=== PATIENT | male | born 1975 ===

== ENCOUNTER 2016-09-15 09:35 | Emergency (ER) | payer OTHER ==
[2016-09-15 09:47] VITALS: BMI 26.2
--- NOTE | 2016-09-15 10:16 | C.PDOC ---
History Of Present Illness Pt is a 41 yr old male presents to the ER with complaints of left groin pain for the past 2 months. Patient states the pain is worsen when he stands for a long period of time. Patient states he has not seen any doctor for the pain or has tried any pain medications. Patient denies fever, chills, nausea, vomiting, abdominal pain, diarrhea, dysuria, weakness or numbness. PMD: Cannot recall name Time Seen by Provider: 09/15/16 10:08 Chief Complaint (Nursing): Groin Pain History Per: Patient, Family (Daughter) History/Exam Limitations: no limitations Onset/Duration Of Symptoms: Persistent (2 months) Current Symptoms Are (Timing): Still Present Recent travel outside of the [place]: No Past Medical History Reviewed: Historical Data, Nursing Documentation, Vital Signs Vital Signs: Last Vital Signs Temp 97.7 F 09/15/16 13:18 Pulse 62 09/15/16 13:18 Resp 18 09/15/16 13:18 BP 113/72 09/15/16 13:18 Pulse Ox 98 09/15/16 13:36 - Medical History PMH: Kidney Stones Family History: States: No Known Family Hx - Social History Hx Tobacco Use: Yes Hx Alcohol Use: Yes Hx Substance Use: No - Immunization History Hx Tetanus Toxoid Vaccination: No Hx Influenza Vaccination: No Hx Pneumococcal Vaccination: No Review Of Systems Except As Marked, All Systems Reviewed And Found Negative. Constitutional: Negative for: Fever, Chills Gastrointestinal: Negative for: Nausea, Vomiting, Abdominal Pain, Diarrhea Genitourinary: Positive for: Other ((+) Left groin pain ). Negative for: Dysuria Neurological: Negative for: Weakness, Numbness Physical Exam - Physical Exam Appears: Well, Non-toxic, No Acute Distress Skin: Warm, Dry, No Rash Head: Atraumatic, Normacephalic Eye(s): bilateral: Normal Inspection, PERRL, EOMI Ear(s): Bilateral: Normal Nose: Normal Oral Mucosa: Moist Tongue: Normal Appearing Throat: Normal Neck: Normal Chest: Symmetrical, No Tenderness Cardiovascular: Rhythm Regular, No Murmur Respiratory: Normal Breath Sounds, No Rales, No Rhonchi, No Stridor, No Wheezing Gastrointestinal/Abdominal: Normal Exam, Soft, No Tenderness, No Guarding, No Rebound Back: Normal Inspection Male Genital: Other ((+) Left Groin - Tenderness and swelling) Extremity: Normal ROM, No Swelling Neurological/Psych: Oriented x3, Normal Speech, Normal Motor ED Course And Treatment - Laboratory Results Result Diagrams: 09/15/16 10:51 09/15/16 10:51 O2 Sat by Pulse Oximetry: 98 - CT Scan/US CT - Abd & Pelvis Other Rad Studies (CT/US): Read By Radiologist, Radiology Report Reviewed CT/US Interpretation: PROCEDURE: CT Abdomen and Pelvis with oral and IV contrast. HISTORY: Left groin pain; r/o incarcerated hernia. COMPARISON: CT abdomen and pelvis without contrast performed 07/06/15. TECHNIQUE: Contiguous axial images of the abdomen and pelvis. Oral and IV contrast was administered. Coronal and Sagittal reformats generated and reviewed. Contrast dose: 100 mL Visipaque. Radiation dose: Total exam DLP = 349.21 mGy-cm. FINDINGS: LOWER THORAX: 5 mm right lower lobe calcified granuloma. No visible consolidation, pleural effusion, or pneumothorax. LIVER: Unremarkable. GALLBLADDER AND BILE DUCTS: Unremarkable. PANCREAS: Unremarkable. SPLEEN: Unremarkable. ADRENALS: Unremarkable. KIDNEYS AND URETERS: The kidneys enhance symmetrically. No hydronephrosis or obstructing renal calculus. BLADDER: The urinary bladder appears unremarkable. REPRODUCTIVE: The prostate gland measures approximately 3.7 x 4.6 cm. APPENDIX: The appendix appears within normal limits of caliber. No secondary signs of acute appendicitis. BOWEL: The stomach is nondistended. The bowel loops appear within normal limits of caliber without evidence of intestinal obstruction. Circumferential thickening of the sigmoid colon can be seen in setting of chronic diverticulosis. Clinical correlation is recommended to exclude colitis (I.e. infectious, inflammatory, ischemic). PERITONEUM: No significant free fluid. No definite free air. LYMPH NODES: No bulky lymphadenopathy identified. VASCULATURE: No aortic aneurysm. BONES: Mild degenerative changes. Mild scoliosis. Persistent well marrow heterogeneity predominantly involving the pelvis and sacrum and to a lesser extent the vertebral bodies. OTHER FINDINGS: Postsurgical changes consistent with prior right inguinal hernia repair. Small fat containing left inguinal hernia. IMPRESSION: Circumferential thickening of the sigmoid colon can be seen in setting of chronic diverticulosis. Clinical correlation is recommended to exclude colitis (I.e. infectious, inflammatory, ischemic). Postsurgical changes consistent with prior right inguinal hernia repair. Small fat containing left inguinal hernia. Persistent well marrow heterogeneity predominantly involving the pelvis and sacrum and to a lesser extent the vertebral bodies. Differential diagnosis includes marrow infiltrative processes , anemia, marrow conversion, and postradiation change among other etiologies as reported on prior study performed 07/06/15. Correlate clinically. Medical Decision Making Medical Decision Making: INITIAL IMPRESSION: r/o incarcerated hernia PLAN: * CT - Abd & Pelvis * CBC * Urinalysis NOTE: CT does not show an incarcerated hernia. Will have pt follow up as an outpatient. Disposition Counseled Patient/Family Regarding: Studies Performed, Diagnosis - Disposition Referrals: [facility] [Outside] [facility] [Outside] Disposition: HOME/ ROUTINE Disposition Time: 13:29 Condition: IMPROVED Additional Instructions: Mr. Augustin, thank you for letting us take care of you today. Return to the ER if your symptoms worsen, or if any problems. Take the medication listed below as prescribed. No heavy lifting if possible. Call the [facility] at the phone number listed below. Once you go to the [facility], you will get a referral to see a surgeon. Prescriptions: Ibuprofen [Motrin] 1 tab PO Q8 #30 tab Instructions: Inguinal Hernia (ED) Forms: Gen Discharge Inst Austrian Print Language: YI - POA Present On Arrival: None - Clinical Impression Clinical Impression: Inguinal hernia - Scribe Statement The provider has reviewed the documentation as recorded by the Parisibgreer Miller Provider Attestation: All medical record entries made by the Parisibgreer were at my direction and personally dictated by me. I have reviewed the chart and agree that the record accurately reflects my personal performance of the history, physical exam, medical decision making, and the department course for this patient. I have also personally directed, reviewed, and agree with the discharge instructions and disposition.
[2016-09-15] MEDS ORDERED: Iohexol 240 (50 ml) PO STA (10:19)
[2016-09-15 10:24] LABS: RBC URINE < 1 /hpf (0-3); URINE BACTERIA RARE (<OCC); URINE BILIRUBIN NEGATIVE (NEGATIVE); URINE BLOOD 1+ (NEGATIVE); URINE COLOR Straw (YELLOW); URINE GLUCOSE (UA) NORMAL (Normal); URINE KETONE NEGATIVE (NEGATIVE); URINE LEUKOCYTE ESTERASE NEG Leu/uL (Negative); URINE PROTEIN NEGATIVE (NEGATIVE); URINE UROBILINOGEN NORMAL mg/dL (0.2-1.0); WBC URINE < 1 /hpf (0-5)
[2016-09-15] MEDS ORDERED: Iohexol 240 (50 ml) ONE (10:28)
[2016-09-15 10:54] LABS: BASO # 0.1 K/uL (0.0-0.2); BASO % 0.7 % (0.0-2.0); EOS # 0.2 K/uL (0.0-0.7); EOS % 2.4 % (0.0-4.0); HEMATOCRIT 52.4 % (35.0-51.0); LYMPH # 3.4 K/uL (1.0-4.3); LYMPH % 35.8 % (20.0-40.0); MEAN CELL VOLUME 90.5 fL (80.0-94.0); MEAN CORPUSCULAR HEMOGLOBIN 30.7 pg (27.0-31.0); MEAN CORPUSCULAR HGB CONC 33.9 g/dL (33.0-37.0); MEAN PLATELET VOLUME 8.6 fL (7.2-11.7); MONO % 10.1 % (0.0-10.0); NRBC % 0.1 % (0.0-2.0); RED CELL DISTRIBUTION WIDTH 12.6 % (11.5-14.5); WHITE BLOOD COUNT 9.6 K/uL (4.8-10.8)
[2016-09-15 11:15] LABS: CHLORIDE 97 mmol/L (98-107); POTASSIUM 3.7 mmol/L (3.6-5.2); SODIUM 140 mmol/L (132-148)
[2016-09-15 11:18] LABS: ALB/GLOB RATIO 1.4 (1.0-2.1); ALKALINE PHOSPHATASE 96 U/L (38-126); ALT/SGPT 35 U/L (21-72); AST/SGOT 35 U/L (17-59); BILIRUBIN,TOTAL 0.7 mg/dL (0.2-1.3); BLOOD UREA NITROGEN 13 mg/dL (9-20); CALCIUM 9.1 mg/dl (8.6-10.4); CARBON DIOXIDE 27 mmol/L (22-30); GFR AFRICAN-AMERICAN > 60; GLUCOSE,RANDOM 98 mg/dL (75-110)
[2016-09-15] MEDS ORDERED: Iodixanol 320 mg/ml 150 ml Bottle IV ONE (12:10)
--- NOTE | 2016-09-15 13:18 | CT ---
PROCEDURE: CT Abdomen and Pelvis with oral and IV contrast. HISTORY: Left groin pain; r/o incarcerated hernia COMPARISON: CT abdomen and pelvis without contrast performed 07/06/15 TECHNIQUE: Contiguous axial images of the abdomen and pelvis. Oral and IV contrast was administered. Coronal and Sagittal reformats generated and reviewed. Contrast dose: 100 mL Visipaque Radiation dose: Total exam DLP = 349.21 mGy-cm. FINDINGS: LOWER THORAX: 5 mm right lower lobe calcified granuloma. No visible consolidation, pleural effusion, or pneumothorax. LIVER: Unremarkable. GALLBLADDER AND BILE DUCTS: Unremarkable. PANCREAS: Unremarkable. SPLEEN: Unremarkable. ADRENALS: Unremarkable. KIDNEYS AND URETERS: The kidneys enhance symmetrically. No hydronephrosis or obstructing renal calculus. BLADDER: The urinary bladder appears unremarkable. REPRODUCTIVE: The prostate gland measures approximately 3.7 x 4.6 cm. APPENDIX: The appendix appears within normal limits of caliber. No secondary signs of acute appendicitis. BOWEL: The stomach is nondistended. The bowel loops appear within normal limits of caliber without evidence of intestinal obstruction. Circumferential thickening of the sigmoid colon can be seen in setting of chronic diverticulosis. Clinical correlation is recommended to exclude colitis (I.e. infectious, inflammatory, ischemic). PERITONEUM: No significant free fluid. No definite free air. LYMPH NODES: No bulky lymphadenopathy identified. VASCULATURE: No aortic aneurysm. BONES: Mild degenerative changes. Mild scoliosis. Persistent well marrow heterogeneity predominantly involving the pelvis and sacrum and to a lesser extent the vertebral bodies. OTHER FINDINGS: Postsurgical changes consistent with prior right inguinal hernia repair. Small fat containing left inguinal hernia. IMPRESSION: Circumferential thickening of the sigmoid colon can be seen in setting of chronic diverticulosis. Clinical correlation is recommended to exclude colitis (I.e. infectious, inflammatory, ischemic). Postsurgical changes consistent with prior right inguinal hernia repair. Small fat containing left inguinal hernia. Persistent well marrow heterogeneity predominantly involving the pelvis and sacrum and to a lesser extent the vertebral bodies. Differential diagnosis includes marrow infiltrative processes, anemia, marrow conversion, and postradiation change among other etiologies as reported on prior study performed 07/06/15. Correlate clinically.
[2016-09-15 13:19] VITALS: BP 113/72; PULSE 62; RESP 18; TEMP 97.7
[2016-09-15 13:20] VITALS: O2SAT 98
== END 2016-09-15 14:02 | disposition home or self-care (01) ==
LOC: C.ER 09:35
DX: K40.90 Unilateral inguinal hernia, without obstruction or gangrene, not specified as recurrent (principal)
CPT/HCPCS: 74177; 80053; 81001; 83690; 85025; 85610; 85730; 99283; Q9965; Q9966

== ENCOUNTER 2016-10-17 08:52 | Day surgery (SDC) | payer OTHER, SELFPAY ==
[2016-10-17 09:59] VITALS: BMI 26.4
[2016-10-17] MEDS ORDERED: Propofol 10 mg/ml Inj (20 ML) ONE (10:40)
[2016-10-17 13:14] VITALS: TEMP 97.8
[2016-10-17 13:21] VITALS: BP 115/74; PULSE 78; RESP 16; O2SAT 99
== END 2016-10-17 12:19 | disposition home or self-care (01) ==
LOC: C.ENDO 08:52
PROVIDERS: ATTEND Internal Medicine Gastroenterology
DX: K57.90 Diverticulosis of intestine, part unspecified, without perforation or abscess without bleeding (principal); K64.8 Other hemorrhoids
CPT/HCPCS: 45378; J2704

== ENCOUNTER 2016-10-21 10:22 | Day surgery (SDC) | payer OTHER ==
[~2016-10-21 10:22] MED LIST: Bupivacaine HCl 0.25% PF (10 ml) Inj ONE; ceFAZolin IV 1 gm in Dextrose 0 GM/0 ML BAG IVPB ONE
[2016-10-21] MEDS ORDERED: Lidocaine 2% w Epi 1:100,000 Inj IJ ONE (10:23)
[2016-10-21] MEDS ORDERED: Bupivacaine HCl 0.25% PF (10 ml) Inj ONE (10:23)
[2016-10-21] MEDS ORDERED: Midazolam 2 MG/2 ML VIAL ONE (10:53)
[2016-10-21] MEDS ORDERED: Propofol 10 mg/ml Inj (20 ML) ONE (10:53)
[2016-10-21] MEDS ORDERED: Lactated Ringer's 1,000 ML IV ONE ×4 (11:00→12:25)
[2016-10-21] MEDS ORDERED: ceFAZolin IV 2 gm in Dextrose 1 GM/50 ML BAG IVPB ONE (11:08)
[2016-10-21] MEDS ORDERED: Rocuronium 10 mg/ml (10 ml) ONE (12:23)
--- NOTE | 2016-10-21 12:50 | PCM.SURG1 ---
Surgeon's Initial Post Op Note - Surgeon's Notes Surgeon: Alison Coin Machine Servicer Repairer: Michael Domingo Type of Anesthesia: General Endo, Local Pre-Operative Diagnosis: Left inguinal hernia Operative Findings: Indirect L inguinal hernia Post-Operative Diagnosis: same Operation Performed: Laparoscopic TEP inguinal hernia repair w. mesh Specimen/Specimens Removed: none Estimated Blood Loss: EBL {In ML}: 10 Blood Products Given: N/A Drains Used: No Drains Post-Op Condition: Good Date of Surgery/Procedure: 10/21/16 Time of Surgery/Procedure: 12:50
[2016-10-21] MEDS ORDERED: Oxycodone/Acetaminophen 5/325 mg Tab PO PRN ×2 (12:51→14:15)
[2016-10-21] MEDS ORDERED: HYDROmorphone 0.5 mg/0.5 ml ISec IVP PRN (12:54)
[2016-10-21] MEDS ORDERED: Lactated Ringer's 1,000 ML IV SCH (13:00)
[2016-10-21] MEDS ORDERED: HYDROmorphone 0.5 mg/0.5 ml ISec IVP ONE (13:15)
[2016-10-21 15:24] VITALS: BP 116/75; PULSE 81; RESP 16; TEMP 97.3; O2SAT 99
--- NOTE | 2016-10-21 16:59 | OP ---
PROCEDURE DATE: 10/21/2016 PREOPERATIVE DIAGNOSIS: Left inguinal hernia. POSTOPERATIVE DIAGNOSIS: Left inguinal hernia. PROCEDURE DONE: Left inguinal hernia repair with mesh. SURGEON: Nadir Hansen M.D. ONLINE MERCHANDISING MANAGER: MALIA Molina and Margarito Ponce, PGY-2 resident. ANESTHESIA: General endotracheal tube anesthesia. ESTIMATED BLOOD LOSS: Around 10 mL. DRAINS: None. PATHOLOGY: None. COMPLICATIONS: None. INTRAOPERATIVE FINDINGS: The patient had a left indirect inguinal hernia and umbilical hernia. INTRAOPERATIVE STEPS: This 41-year-old male who was diagnosed with a left inguinal hernia and the patient was consented for the laparoscopic left inguinal hernia repair with mesh. Brought to the OR and placed supine on the operating table. After induction of the anesthesia, abdomen was prepped and draped in the usual sterile fashion. An infraumbilical transverse incision was made. Anterior rectus sheath was incised. Retro rectus dissection was done. Balloon dissector was placed to create a pneumo in the preperitoneal space and another two 5 mm ports were placed. Dissection was done laterally and inferiorly. The peritoneal sac was dissected from the vas deferens and spermatic cord vessels and reduced back into the peritoneal cavity and left- sided anatomical mesh was implanted. After implantation of the mesh and after proper hemostasis, all the ports were taken out under vision. Pneumo was deflated. The umbilical port site was closed in 2 layers, the fascia with 0 Vicryl interrupted sutures, the skin with a 4-0 Monocryl and dry sterile dressing was applied. The patient tolerated the procedure well. Count of instruments and gauze was correct. There was no apparent complication. The patient was extubated in the OR and sent to the postanesthesia care unit in stable condition. Nadir Hansen MD cc: [id number] TT: 10/21/2016 16:58:30 sn MTDD
== END 2016-10-21 15:46 | disposition home or self-care (01) ==
LOC: C.SDS 10:22
PROVIDERS: ATTEND Surgery Surgical Critical Care
DX: K40.90 Unilateral inguinal hernia, without obstruction or gangrene, not specified as recurrent (principal)
CPT/HCPCS: 49507; J0690; J1170; J1885; J2250; J2704; J3010; J7120